=== PATIENT | male | born 1940 | race Caucasian/White ===

== ENCOUNTER 2022-08-27 07:28 | Day surgery (SDC) | payer MEDICARE, OTHER ==
[2022-08-27] MEDS ORDERED: Depo-Medrol 40 MG/ML IM ONE (07:29)
[2022-08-27] MEDS ORDERED: LIDOCAINE HCL 2% 100 MG/5 ML IJ ONE (07:29)
[2022-08-27] MEDS ORDERED: DIPRIVAN 200 MG/20 ML IV ONE (09:04)
[2022-08-27] MEDS ORDERED: Lactated Ringers 1,000 ML IV ONE (10:01)
--- NOTE | 2022-08-27 11:39 | XRAY ---
Indication: Bilateral L4-S1 MBB. Intraoperative fluoroscopy provided for 12 seconds. Single digital spot image submitted for interpretation demonstrates posterior needle tips projecting over the expected left and right L4-S1 nerve roots. Correlate with intraoperative findings/report.
--- NOTE | 2022-08-27 12:32 | XRAY ---
12 seconds of fluoroscopy was used in surgery for a bilateral L4-S1 MBB.
== END 2022-08-27 09:35 | disposition home or self-care (01) ==
LOC: SDC-PAIN 07:28
PROVIDERS: ATTEND Psychiatry & Neurology Pain Medicine
DX: M47.816 Spondylosis without myelopathy or radiculopathy, lumbar region (principal); E11.9 Type 2 diabetes mellitus without complications; Z79.899 Other long term (current) drug therapy
CPT/HCPCS: 64493; 64494; 72020; 77002; 82947; J1030; J2704

== ENCOUNTER 2022-10-22 09:50 | Day surgery (SDC) | payer MEDICARE, OTHER ==
[2022-10-22] MEDS ORDERED: Depo-Medrol 40 MG/ML IM ONE (09:51)
[2022-10-22] MEDS ORDERED: BUPIVACAINE 0.5% VIAL IJ ONE (09:51)
[2022-10-22] MEDS ORDERED: DIPRIVAN 200 MG/20 ML IV ONE (12:09)
--- NOTE | 2022-10-22 14:34 | XRAY ---
Indication: Bilateral L4-S1 MBB. Intraoperative fluoroscopy provided for 17 seconds. Single digital spot image submitted for interpretation demonstrates posterior needle tips projecting over the expected left and right L4-S1 nerve roots. Correlate with intraoperative findings/report.
--- NOTE | 2022-10-22 14:56 | XRAY ---
17 seconds of fluoroscopy was used in surgery for a bilateral L4-S1 MBB.
[2022-10-22] MEDS ORDERED: Lactated Ringers 1,000 ML IV ONE (15:32)
== END 2022-10-22 12:45 | disposition home or self-care (01) ==
LOC: SDC-PAIN 09:50
PROVIDERS: ATTEND Psychiatry & Neurology Pain Medicine
DX: M47.816 Spondylosis without myelopathy or radiculopathy, lumbar region (principal); E11.9 Type 2 diabetes mellitus without complications; Z79.899 Other long term (current) drug therapy
CPT/HCPCS: 64493; 64494; 72020; 77002; 82947; J1030; J2704

== ENCOUNTER 2022-12-10 08:44 | Day surgery (SDC) | payer MEDICARE, OTHER ==
[2022-12-10] MEDS ORDERED: LIDOCAINE HCL 1% 50 MG/5 ML VL PF IJ ONE (08:45)
[2022-12-10] MEDS ORDERED: Depo-Medrol 40 MG/ML IM ONE (08:45)
[2022-12-10] MEDS ORDERED: BUPIVACAINE 0.5% VIAL IJ ONE (08:45)
[2022-12-10] MEDS ORDERED: DIPRIVAN 200 MG/20 ML IV ONE ×2 (10:27→10:34)
--- NOTE | 2022-12-10 11:34 | XRAY ---
Indication: Right L4-S1 RFA. Intraoperative fluoroscopy provided for 28 seconds. 5 digital spot image submitted for interpretation demonstrates posterior needle tips projecting over the expected right L4-S1 nerve roots. Correlate with intraoperative findings/report.
--- NOTE | 2022-12-10 11:36 | XRAY ---
28 seconds of fluoroscopy was used in surgery for a right L4-S1 RFA.
[2022-12-10] MEDS ORDERED: Lactated Ringers 1,000 ML IV ONE (14:02)
== END 2022-12-10 11:05 | disposition home or self-care (01) ==
LOC: SDC-PAIN 08:44
PROVIDERS: ATTEND Psychiatry & Neurology Pain Medicine
DX: M47.816 Spondylosis without myelopathy or radiculopathy, lumbar region (principal); E11.9 Type 2 diabetes mellitus without complications; Z79.899 Other long term (current) drug therapy
CPT/HCPCS: 64635; 64636; 72100; 77002; 82947; 99100; J1030; J2001; J2704

== ENCOUNTER 2022-12-24 08:16 | Day surgery (SDC) | payer MEDICARE, OTHER ==
[2022-12-24] MEDS ORDERED: Depo-Medrol 40 MG/ML IJ ONE (08:17)
[2022-12-24] MEDS ORDERED: LIDOCAINE HCL 1% 50 MG/5 ML VL PF IJ ONE (08:17)
[2022-12-24] MEDS ORDERED: BUPIVACAINE 0.5% VIAL IJ ONE (08:17)
[2022-12-24] MEDS ORDERED: DIPRIVAN 200 MG/20 ML IV ONE (09:42)
--- NOTE | 2022-12-24 10:33 | XRAY ---
Indication: Left L4-S1 RFA. Intraoperative fluoroscopy provided for 28 seconds. 3 digital spot image submitted for interpretation demonstrates posterior needle tips projecting over the expected left L4-S1 nerve roots. Correlate with intraoperative findings/report.
--- NOTE | 2022-12-24 12:58 | XRAY ---
28 seconds of fluoroscopy was used in surgery for a left L4-S1 RFA.
[2022-12-24] MEDS ORDERED: Lactated Ringers 1,000 ML IV ONE (13:53)
== END 2022-12-24 10:08 | disposition home or self-care (01) ==
LOC: SDC-PAIN 08:16
PROVIDERS: ATTEND Psychiatry & Neurology Pain Medicine
DX: M47.816 Spondylosis without myelopathy or radiculopathy, lumbar region (principal); E11.9 Type 2 diabetes mellitus without complications; Z79.899 Other long term (current) drug therapy
CPT/HCPCS: 64635; 64636; 72100; 77002; 82947; 99100; J1030; J2001; J2704

== ENCOUNTER → 2023-09-23 | Day surgery (SDC) | payer MEDICARE, OTHER ==
[~2023-09-23] MED LIST: BUPIVACAINE 0.5% VIAL IJ ONE; DIPRIVAN 200 MG/20 ML IV ONE; Depo-Medrol 40 MG/ML IM ONE; Lactated Ringers 1,000 ML IV ONE
--- NOTE | 2023-09-23 14:05 | XRAY ---
Indication: Left SI joint injection. Intraoperative fluoroscopy provided for 6 seconds. 3 digital spot images submitted for interpretation demonstrates posterior needle tip projecting over the expected left SI joint. Correlate with intraoperative findings/report.
--- NOTE | 2023-09-23 15:05 | XRAY ---
6 seconds of fluoroscopy was used in surgery for a left sacroiliac joint injection.
== END ==
LOC: SDC-PAIN 09:39
PROVIDERS: ATTEND Psychiatry & Neurology Pain Medicine
DX: M46.1 Sacroiliitis, not elsewhere classified (principal); E11.9 Type 2 diabetes mellitus without complications; Z79.899 Other long term (current) drug therapy
CPT/HCPCS: 01992; 27096; 72170; 77002; 82947; 99100; G0260; J1030; J2704

== ENCOUNTER 2023-11-11 07:08 | Day surgery (SDC) | payer MEDICARE, OTHER ==
[2023-11-11] MEDS ORDERED: BUPIVACAINE 0.5% VIAL IJ ONE (07:09)
[2023-11-11] MEDS ORDERED: Depo-Medrol 40 MG/ML IM ONE (07:09)
[2023-11-11] MEDS ORDERED: DIPRIVAN 200 MG/20 ML IV ONE (09:00)
[2023-11-11] MEDS ORDERED: Lactated Ringers 1,000 ML IV ONE (09:20)
--- NOTE | 2023-11-11 09:52 | XRAY ---
Indication: Left SI joint injection. Intraoperative fluoroscopy provided for 26 seconds. 3 digital spot images submitted for interpretation demonstrates posterior needle tip projecting over left SI joint. Correlate with intraoperative findings/report.
--- NOTE | 2023-11-11 10:04 | XRAY ---
26 seconds of fluoroscopy was used in surgery for a left sacroiliac joint injection.
== END 2023-11-11 09:29 | disposition home or self-care (01) ==
LOC: SDC-PAIN 07:08
PROVIDERS: ATTEND Psychiatry & Neurology Pain Medicine
DX: M46.1 Sacroiliitis, not elsewhere classified (principal); E11.9 Type 2 diabetes mellitus without complications; Z79.899 Other long term (current) drug therapy
CPT/HCPCS: 01992; 27096; 72170; 77002; 82947; 99100; G0260; J1030; J2704; Q9966

== ENCOUNTER 2024-03-30 07:48 | Day surgery (SDC) | payer OTHER ==
[2024-03-30] MEDS ORDERED: Sensorcaine 0.25% 10 ML IJ ONE (07:49)
[2024-03-30] MEDS ORDERED: Depo-Medrol 40 MG/ML IM ONE (07:49)
[2024-03-30] MEDS ORDERED: XYLOCAINE-MPF 1% 5ML SDV IJ ONE (07:49)
[2024-03-30] MEDS ORDERED: DIPRIVAN 200 MG/20 ML IV ONE (09:36)
--- NOTE | 2024-03-30 10:14 | XRAY ---
Indication: Left SI joint RFA. Intraoperative fluoroscopy provided for 30 seconds. 6 digital spot image submitted for interpretation demonstrates 4 consecutive posterior needle tips projecting just medial to left SI joint. Correlate with intraoperative findings/report.
--- NOTE | 2024-03-30 10:50 | XRAY ---
30 seconds of fluoroscopy was used in surgery for a left sacroiliac joint RFA.
[2024-03-30] MEDS ORDERED: Lactated Ringers 1,000 ML IV ONE (15:01)
== END 2024-03-30 10:13 | disposition home or self-care (01) ==
LOC: SDC-PAIN 07:48
PROVIDERS: ATTEND Psychiatry & Neurology Pain Medicine
DX: M46.1 Sacroiliitis, not elsewhere classified (principal); R73.03 Prediabetes
CPT/HCPCS: 64625; 72170; 77002; 82947; 99100; J1010; J2704